=== PATIENT | female | born 1980 | race African-American/Black ===

== ENCOUNTER 2016-10-24 17:32 | Emergency (ER) | payer OTHER ==
[~2016-10-24] VITALS: Ht 160 cm; Wt 79.4 kg
[~2016-10-24 17:32] MED LIST: ONDA4TAB10 PO
[2016-10-24 17:34] VITALS: BP 132/84
[2016-10-24 18:29] LABS: BILIRUBIN,URINE NEGATIVE (NEG); GLUCOSE,URINE NEGATIVE (NEG); NITRITE,URINE NEGATIVE (NEG); PROTEIN,URINE NEGATIVE (NEG-TRACE); UROBILINOGEN,URINE 0.2 mg/dL (0.2 mg/dL)
[2016-10-24 18:40] LABS: BASO % 0 % (0-3); EOS % 2 % (0-3); HEMATOCRIT 38.9 % (36.0-47.0); HEMOGLOBIN 12.7 g/dL (12.0-15.5); LYMPH # 2.3 x10^3/uL (1.0-4.8); LYMPH % 29 % (24-48); MEAN CORPUSCULAR HEMOGLOBIN 28 pg (25-35); MEAN CORPUSCULAR HGB CONC 33 g/dL (31-37); MEAN CORPUSCULAR VOLUME 85 fL (79-100); MONO % 8 % (0-9); NEUT % 61 % (31-73); PLATELET COUNT 216 x10^3/uL (140-400); RED BLOOD COUNT 4.59 x10^6/uL (3.50-5.40); RED CELL DISTRIBUTION WIDTH 13.8 % (11.5-14.5)
[2016-10-24 18:49] LABS: BACTERIA,URINE 0 /HPF (0-FEW); RBC,URINE 0 /HPF (0-2); SQUAMOUS EPITHELIAL CELL,UR FEW /LPF; WBC,URINE 0 /HPF (0-4)
--- NOTE | 2016-10-24 18:50 | PHYS DOC ---
Past Medical History Past Medical History: No Pertinent History Past Surgical History: No Surgical History Alcohol Use: Rarely Drug Use: None Adult General Chief Complaint Chief Complaint: ABDOMINAL PAIN IN HPI HPI Patient is a 35 year old female who presents with lower abdominal pain. Patient reports for the past two weeks she has had b/l pelvic pain that she describes as a "shooting" pain with no clear mitigating factors. This pain is accompanied by pressure-like low back discomfort. Patient saw her PCP when these symptoms initially started, and had a positive test at that time (which makes her ). She is unsure when her LMP was as she has irregular menstrual cycles. She did have small amount of vaginal spotting last week for a few days, but none this week. No vaginal discharge. She is taking a vitamin; she has not taken anything for pain. No other acute complaints. Review of Systems Review of Systems Constitutional: Denies fever or chills Eyes: Denies change in visual acuity or eye pain HENT: Denies nasal congestion or sore throat Respiratory: Denies cough or shortness of breath Cardiovascular: Denies chest pain GI: Denies mid or upper abdominal pain, nausea, vomiting, bloody stools or diarrhea : B/l pelvic pain. Denies vaginal bleeding, discharge, dysuria or hematuria Musculoskeletal: Low back discomfort. Integument: Denies rash or skin lesions Neurologic: Denies headache, focal weakness or sensory changes Allergies Allergies Allergies Coded Allergies Type Severity Reaction Last Updated Verified No Known Drug Allergies 06/16/14 No Physical Exam Physical Exam Constitutional: Well developed, well nourished, no acute distress, non-toxic appearance Neck: Normal range of motion, no stridor Cardiovascular: Heart rate normal, regular rhythm, no murmur Lungs & Thorax: Bilateral breath sounds clear to auscultation Abdomen: Bowel sounds normal, soft, non-distended, no TTP Pelvic: No blood in vault, minimal white discharge present, no CMT or adnexal tenderness Skin: Warm, dry, no erythema, no rash Back: No tenderness, no skin lesion or deformity Extremities: No obvious deformity, no edema Neurologic: Alert and oriented X 3, no gross deficits noted Current Patient Data Vital Signs Vital Signs Date Time Temp Pulse Resp B/P Pulse Ox O2 Delivery O2 Flow Rate FiO2 10/24/16 17:34 98.8 98 20 132/84 98 Room Air 98.8 Lab Values Laboratory Tests Test 10/24/16 17:00 10/24/16 17:58 10/24/16 18:25 POC Urine HCG, Qualitative Hcg positive (Negative) Urine Collection Type Unknown Urine Color Yellow Urine Clarity Clear Urine pH 6.0 Urine Specific Pelham <=1.005 Urine Protein Negativemg/dL (NEG-TRACE) Urine Glucose (UA) Negativemg/dL (NEG) Urine Ketones (Stick) Negativemg/dL (NEG) Urine Blood Negative (NEG) Urine Nitrite Negative (NEG) Urine Bilirubin Negative (NEG) Urine Urobilinogen Dipstick 0.2mg/dL (0.2 mg/dL) Urine Leukocyte Esterase Negative (NEG) Urine RBC 0/HPF (0-2) Urine WBC 0/HPF (0-4) Urine Squamous Epithelial Cells Few/LPF Urine Bacteria 0/HPF (0-FEW) White Blood Count 8.0x10^3/uL (4.0-11.0) Red Blood Count 4.59x10^6/uL (3.50-5.40) Hemoglobin 12.7g/dL (12.0-15.5) Hematocrit 38.9% (36.0-47.0) Mean Corpuscular Volume 85fL (79-100) Mean Corpuscular Hemoglobin 28pg (25-35) Mean Corpuscular Hemoglobin Concent 33g/dL (31-37) Red Cell Distribution Width 13.8% (11.5-14.5) Platelet Count 216x10^3/uL (140-400) Neutrophils (%) (Auto) 61% (31-73) Lymphocytes (%) (Auto) 29% (24-48) Monocytes (%) (Auto) 8% (0-9) Eosinophils (%) (Auto) 2% (0-3) Basophils (%) (Auto) 0% (0-3) Neutrophils # (Auto) 4.9x10^3uL (1.8-7.7) Lymphocytes # (Auto) 2.3x10^3/uL (1.0-4.8) Monocytes # (Auto) 0.6x10^3/uL (0.0-1.1) Eosinophils # (Auto) 0.2x10^3/uL (0.0-0.7) Basophils # (Auto) 0.0x10^3/uL (0.0-0.2) Maternal Serum HCG Beta Subunit 80699yNO/mL (0-6) H Sodium Level 138mmol/L (136-145) Potassium Level 4.0mmol/L (3.5-5.1) Chloride Level 100mmol/L (98-107) Carbon Dioxide Level 23mmol/L (21-32) Anion Gap 15 (6-14) H Blood Urea Nitrogen 10mg/dL (7-20) Creatinine 0.9mg/dL (0.6-1.0) Estimated GFR (Cockcroft-Gault) 85.7 BUN/Creatinine Ratio 11 (6-20) Glucose Level 124mg/dL (70-99) H Calcium Level 9.4mg/dL (8.5-10.1) Total Bilirubin 0.2mg/dL (0.2-1.0) Aspartate Amino Transferase (AST) 21U/L (15-37) Alanine Aminotransferase (ALT) 34U/L (14-59) Alkaline Phosphatase 59U/L (46-116) Total Protein 7.7g/dL (6.4-8.2) Albumin 3.9g/dL (3.4-5.0) Albumin/Globulin Ratio 1.0 (1.0-1.7) Laboratory Tests 10/24/16 18:25 Laboratory Tests 10/24/16 18:25 Microbiology 10/24/16 Wet Prep - Final, Complete EKG EKG [] Radiology/Procedures Radiology/Procedures Pelvic US: IMPRESSION 1. Single live intrauterine gestation, estimated sonographic gestational age 6 weeks and 0 days. 2. There is left corpus luteum. 3. There is a moderate sized fundal fibroid. Course & Med Decision Making Course & Med Decision Making Pertinent Labs and Imaging studies reviewed. (See chart for details) Patient is 35 year old female who presents with pelvic pain in the setting of . Physical exam benign. Will check UA, labs, pelvic US to evaluate. Patient declines need for tylenol for pain. Labs unremarkable. Ultrasound results as above. Pelvic swabs indicative of bacterial vaginosis. Discussed results with patient. She is already taking vitamin; has ObGyn appt already scheduled. Will discharge with rx for metronidazole, instructions for follow up, return precautions. Dragon Disclaimer Dragon Disclaimer This electronic medical record was generated, in whole or in part, using a voice recognition dictation system. Departure Departure Impression: Primary Impression: Abdominal pain during in first trimester Additional Impression: Bacterial vaginosis Disposition: 01 HOME, SELF-CARE Condition: STABLE Referrals: MATTHEW FORBES MD (PCP) Patient Instructions: Abdominal Pain During , Bacterial Vaginosis Additional Instructions: Thank you for allowing us to provide care today in the Emergency Department. Your ultrasound showed you are about 6 weeks and 0 days based on the size of the fetus. This gives a due date of 06/19/17. The pelvic swabs were positive for bacterial vaginosis. See handout for more information on this condition. Take the provided medication as directed. Also continue to take your vitamins. keep your follow up appointment with your ObGyn. Return promptly to the Emergency Department if you develop any new or concerning symptoms. Scripts Metronidazole 500 Mg Tablet1 Tab PO BID #14 TAB Prov:IRVIN HENDERSON MD 10/24/16 Problem Qualifiers IRVIN HENDERSON MD Oct 24, 2016 18:50
[2016-10-24 18:51] LABS: CALCIUM 9.4 mg/dL (8.5-10.1); CREATININE 0.9 mg/dL (0.6-1.0); GFR 85.7
[2016-10-24 18:57] LABS: ALBUMIN 3.9 g/dL (3.4-5.0); TOTAL BILIRUBIN 0.2 mg/dL (0.2-1.0); TOTAL PROTEIN 7.7 g/dL (6.4-8.2)
--- NOTE | 2016-10-24 19:19 | RAD ---
PROCEDURE Obstetric ultrasound, less than 14 weeks. HISTORY Right lower quadrant pain x2 weeks. Pelvic pain. TECHNIQUE Real-time ultrasound imaging of the pelvis using transabdominal transvaginal windows performed. COMPARISON None. FINDINGS Uterus measures 14 x 7.3 x 5.3 cm. Uterus is retroverted. There is a hypoechoic fundal fibroid measuring 4.9 x 4.3 x 4.6 cm. There is intrauterine gestational sac. Internally a yolk sac and pole are identified. [facility]-rump length 0.4 cm, 6 weeks and 0 days. Ultrasound EDC June 19, 2017. Estimated heart rate 133 beats per minute. The right ovary measures 3.2 x 1.3 x 1.7 cm. The left ovary measures 4.4 x 3.7 x 3.4 cm. Normal blood flow in the ovaries. There is left corpus luteum measuring up to 2.7 cm. No cul-de-sac free fluid is seen. No evidence of adnexal mass. IMPRESSION 1. Single live intrauterine gestation, estimated sonographic gestational age 6 weeks and 0 days. 2. There is left corpus luteum. 3. There is a moderate sized fundal fibroid. Electronically signed by: Hayden Keith MD (Oct 24, 2016 19:18:38)
[2016-10-24] MEDS ORDERED: METR500T4 PO (19:47)
== END 2016-10-24 20:13 | disposition home or self-care (01) ==
LOC: ER 17:32
DX: O23.591 Infection of other part of genital tract in pregnancy, first trimester (principal); Z3A.08 8 weeks gestation of pregnancy
CPT/HCPCS: 76801; 76817; 80053; 81001; 81025; 84702; 85027; 99285; Q0111; 36415; 87491; 87591

== ENCOUNTER → 2017-01-27 | Outpatient (CLI) | payer OTHER ==
[~2017-01-27] MED LIST changes: +METR500T8 PO
--- NOTE | 2017-01-27 13:17 | KCIC ---
uterine abdominal ultrasound more than or equal to 14 weeks HISTORY: Supervision of normal , history of fibroid COMPARISON: October 24, 2016 FINDINGS: Multiple sonographic images of the uterus are submitted. Cervix measured 4.8 cm. There is a single intrauterine fetus in breech presentation. There is detectable cardiac activity 141 bpm. Amniotic fluid volume is within normal limits, estimated JOSLYN 16.1 cm. 2 upper and lower extremities were visualized. There is a four-chamber view of the heart. There is midline cord insertion. Technologist reports a three-vessel cord although not well demonstrated on submitted images. There is no obvious abnormality of the visualized spine. stomach and 2 kidneys were visualized. Urinary bladder is not well visualized during exam. Biometry data are as follows: Biparietal diameter 4.84 cm corresponds with 20 weeks 4 days Head circumference 18.42 cm corresponds 20 weeks 5 days Abdominal circumference 14.6 cm corresponds with 20 weeks 0 days. Femur length 3.2 cm corresponds with 20 weeks 0 days. Adjusted ultrasound age 20 weeks 2 days with estimated delivery date of 06/14/2017. LMP age 20 weeks 5 days with estimated delivery date of 06/11/2017. Estimated weight 331 g +/- 49 g. HC/AC ratio 1.26 There is a mass in the anterior fundus in the myometrium up to 6.2 x 4.6 x 7 cm as seen previously. No free fluid is demonstrated. Maternal adnexal regions are not demonstrated. IMPRESSION: 1. There is a single viable intrauterine fetus, no abnormality identified of the visualized anatomy. urinary bladder is not well visualized during exam. Three-vessel cord is reported by technologist although not well-demonstrated on submitted images. Fetus is in breech presentation. 2. There is anterior uterine mass in the fundus compatible with fibroid, up to 7 cm in greatest dimension. Electronically signed by: Kenton Orlando MD (01/27/2017 1:14 PM) [facility]
== END | disposition home or self-care (01) ==
LOC: KCIC US 07:45
PROVIDERS: ATTEND Family Medicine
DX: Z34.90 Encounter for supervision of normal pregnancy, unspecified, unspecified trimester (principal)
CPT/HCPCS: 76805

== ENCOUNTER → 2017-03-26 | Outpatient (CLI) | payer OTHER ==
[~2017-03-26] MED LIST changes: +DOCU-109 PO; +IBUP-1060 PO; +ONDA8TAB9 PO; +OXYC-323 PO
[2017-03-26 10:30] LABS: HEMATOCRIT 37.7 % (36.0-47.0); HEMOGLOBIN 12.2 g/dL (12.0-15.5)
== END | disposition home or self-care (01) ==
LOC: LAB 08:48
PROVIDERS: ATTEND Family Medicine
DX: Z34.80 Encounter for supervision of other normal pregnancy, unspecified trimester (principal)
CPT/HCPCS: 36415; 82950; 85014; 85018

== ENCOUNTER → 2017-03-30 | Outpatient (CLI) | payer OTHER ==
[~2017-03-30] MED LIST changes: -DOCU-109 PO; -IBUP-1060 PO; -ONDA8TAB9 PO; -OXYC-323 PO
== END | disposition home or self-care (01) ==
LOC: LAB 08:54
PROVIDERS: ATTEND Family Medicine
DX: Z34.83 Encounter for supervision of other normal pregnancy, third trimester (principal); Z3A.35 35 weeks gestation of pregnancy
CPT/HCPCS: 36415; 82947; 82950

== ENCOUNTER → 2017-05-25 | Outpatient (CLI) | payer OTHER ==
[~2017-05-25] MED LIST changes: +DOCU-109 PO; +IBUP-1060 PO; +ONDA8TAB9 PO; +OXYC-323 PO
--- NOTE | 2017-05-25 17:04 | KCIC ---
Obstetrical ultrasound more than or equal to 14 weeks HISTORY: Possible breech presentation COMPARISON: January 27, 2017 FINDINGS: Multiple transabdominal sonographic images of the pelvis are submitted. There is a single intrauterine fetus in breech presentation, head on the maternal right side. There is detectable cardiac activity 140 bpm. movement was noted by the technologist. Biometry data are as follows: Biparietal diameter 9.57 cm corresponds with 39 weeks 1 day Head circumference 33.7 cm corresponds with 38 weeks 4 days Abdominal circumference 34.57 cm corresponding with 38 weeks 3 days Femur length 7.54 cm corresponding with 38 weeks 4 days HC/AC ratio 0.97 Estimated weight 3537 g +/- 523 grams. Adjusted ultrasound age 38 weeks 5 days with estimated delivery date of 06/03/2017. Estimated JOSLYN 13 cm. Exam does not evaluate anatomy. IMPRESSION: 1. There is a single viable intrauterine fetus, breech presentation. Electronically signed by: Kenton Orlando MD (05/25/2017 5:01 PM) [facility]
== END | disposition home or self-care (01) ==
LOC: KCIC US 13:59
PROVIDERS: ATTEND Family Medicine
DX: O32.1XX0 Maternal care for breech presentation, not applicable or unspecified (principal)
CPT/HCPCS: 76805

== ENCOUNTER 2017-05-29 10:52 | Observation (INO) | payer OTHER ==
[~2017-05-29 10:52] MED LIST changes: -DOCU-109 PO; -IBUP-1060 PO; -ONDA8TAB9 PO; -OXYC-323 PO
[2017-05-29] MEDS ORDERED: IV RINGERS,LACTATED 1000ML 1,000 ML IV PRN (11:30)
[2017-05-29 11:50] LABS: BASO % 0 % (0-3); EOS % 1 % (0-3); HEMATOCRIT 39.9 % (36.0-47.0); HEMOGLOBIN 13.1 g/dL (12.0-15.5); LYMPH # 1.9 x10^3/uL (1.0-4.8); LYMPH % 25 % (24-48); MEAN CORPUSCULAR HEMOGLOBIN 27 pg (25-35); MEAN CORPUSCULAR HGB CONC 33 g/dL (31-37); MEAN CORPUSCULAR VOLUME 84 fL (79-100); MONO % 7 % (0-9); NEUT % 66 % (31-73); PLATELET COUNT 172 x10^3/uL (140-400); RED BLOOD COUNT 4.78 x10^6/uL (3.50-5.40); WHITE BLOOD COUNT 7.5 x10^3/uL (4.0-11.0)
[2017-05-29] MEDS ORDERED: LIDOCAINE 2% PF Vial for OR 5 ML VIAL. ONE (12:09)
--- NOTE | 2017-05-29 12:38 | PDOC2 ---
CONSULT Date of Consult Date of Consult DATE: 05/29/17 TIME: 12:32 Reason for Consult Reason for Consult: External version Referring Physician Referring Physician: Dr. Champion Identification/Chief Complaint Chief Complaint breech and needs external version Problems: Source Source: Patient History of Present Illness Reason for Visit: 36 y/o @ 38 wks presents for external version if JOSLYN normal. No complications with current . Past Medical History Cardiovascular: No pertinent hx Pulmonary: No pertinent hx GI: No pertinent hx Heme/Onc: No pertinent hx Hepatobiliary: No pertinent hx Psych: No pertinent hx Rheumatologic: No pertinent hx Infectious disease: No pertinent hx ENT: No pertinent hx Renal/: No pertinent hx Endocrine: No pertinent hx Past Surgical History Past Surgical History: No pertinent history Current Medications Current Medications Current Medications Ringer's Solution 1,000 ml @ 125 mls/hr Q8H PRN IV PER PROTOCOL Last administered on 05/29/17t 11:42; Start 05/29/17 at 11:30 Lidocaine HCl (Lidocaine Pf 2% Vial) 5 ml STK-MED ONCE .ROUTE ; Start 05/29/17 at 12:09; Stop 05/29/17 at 12:10; Status DC Active Scripts Active Metronidazole 500 Mg Tablet 1 Tab PO BID Zofran Odt (Ondansetron) 4 Mg Tab.rapdis 4 Mg PO BID PRN Allergies Allergies: Coded Allergies: No Known Drug Allergies (Unverified , 06/16/14) ROS General: No: Chills, Night Sweats, Fatigue, Malaise, Appetite, Other PSYCHOLOGICAL ROS: No: Anxiety, Behavioral Disorder, Concentration difficultie , Decreased libido, Depression, Disorientation, Hallucinations, Hostility, Irritablity, Memory difficulties, Mood Swings, Obsessive thoughts, Physical abuse, Sexual abuse, Sleep disturbances, Suicidal ideation, Other Eyes: No Blurry vision, No Decreased vision, No Double vision, No Dry eyes, No Excessive tearing, No Eye Pain, No Itchy Eyes, No Loss of vision, No Photophobia , No Scotomata, No Uses contacts, No Uses glasses, No Other HEENT: No: Heacaches, Visual Changes, Hearing change, Nasal congestion, Nasal discharge, Oral lesions, Sinus pain, Sore Throat, Epistaxis, Sneezing, Snoring, Tinnitus, Vertigo, Vocal changes, Other ALLERGY AND IMMUNOLOGY: No: Hives, Insect Bite Sensitivity, Itchy/Watery Eyes, Nasal Congestion, Post Nasal Drip, Seasonal Allergies, Other Hematological and Lymphatic: No: Bleeding Problems, Blood Clots, Blood Transfusions, Brusing, Night Sweats, Pallor, Swollen Lymph Nodes, Other ENDOCRINE: No: Breast Changes, Galactorrhea, Hair Pattern Changes, Hot Flashes , Malaise/lethargy, Mood Swings, Palpitations, Polydipsia/polyuria, Skin Changes , Temperature Intolerance, Unexpected Weight Changes, Other Respiratory: No: Cough, Hemoptysis, Orthopnea, Pleuritic Pain, Shortness of breath, SOB with excertion, Sputum Changes, Stridor, Tachypnea, Wheezing, Other Gastrointestinal: No Nausea, No Vomiting, No Abdominal Pain, No Diarrhea, No Constipation, No Melena, No Hematochezia, No Other Neurological: No Behavorial Changes, No Bowel/Bladder ControlChng, No Confusion , No Dizziness, No Gait Disturbance, No Headaches, No Impaired Coord/balance, No Memory Loss, No Numbness/Tingling, No Seizures, No Speech Problems, No Tremors, No Visual Changes, No Weakness, No Other Skin: No Dry Skin, No Eczema, No Hair Changes, No Lumps, No Mole Changes, No Mottling, No Nail Changes, No Pruritus, No Rash, No Skin Lesion Changes, No Other, No Acne Physical Exam General: Alert, Oriented X3, Cooperative HEENT: Atraumatic Lungs: Clear to auscultation Heart: Regular rate Abdomen: Normal bowel sounds, Soft, No tenderness, Other (Sono: JOSLYN 5 cm. Tal Breech.) Extremities: No edema Psych/Mental Status: Mental status NL Labs Labs Laboratory Tests Test 05/29/17 11:30 White Blood Count 7.5 x10^3/uL (4.0-11.0) Red Blood Count 4.78 x10^6/uL (3.50-5.40) Hemoglobin 13.1 g/dL (12.0-15.5) Hematocrit 39.9 % (36.0-47.0) Mean Corpuscular Volume 84 fL (79-100) Mean Corpuscular Hemoglobin 27 pg (25-35) Mean Corpuscular Hemoglobin Concent 33 g/dL (31-37) Red Cell Distribution Width 16.0 % (11.5-14.5) Platelet Count 172 x10^3/uL (140-400) Neutrophils (%) (Auto) 66 % (31-73) Lymphocytes (%) (Auto) 25 % (24-48) Monocytes (%) (Auto) 7 % (0-9) Eosinophils (%) (Auto) 1 % (0-3) Basophils (%) (Auto) 0 % (0-3) Neutrophils # (Auto) 5.0 x10^3uL (1.8-7.7) Lymphocytes # (Auto) 1.9 x10^3/uL (1.0-4.8) Monocytes # (Auto) 0.5 x10^3/uL (0.0-1.1) Eosinophils # (Auto) 0.1 x10^3/uL (0.0-0.7) Basophils # (Auto) 0.0 x10^3/uL (0.0-0.2) Laboratory Tests Test 05/29/17 11:30 White Blood Count 7.5 x10^3/uL (4.0-11.0) Red Blood Count 4.78 x10^6/uL (3.50-5.40) Hemoglobin 13.1 g/dL (12.0-15.5) Hematocrit 39.9 % (36.0-47.0) Mean Corpuscular Volume 84 fL (79-100) Mean Corpuscular Hemoglobin 27 pg (25-35) Mean Corpuscular Hemoglobin Concent 33 g/dL (31-37) Red Cell Distribution Width 16.0 % (11.5-14.5) Platelet Count 172 x10^3/uL (140-400) Neutrophils (%) (Auto) 66 % (31-73) Lymphocytes (%) (Auto) 25 % (24-48) Monocytes (%) (Auto) 7 % (0-9) Eosinophils (%) (Auto) 1 % (0-3) Basophils (%) (Auto) 0 % (0-3) Neutrophils # (Auto) 5.0 x10^3uL (1.8-7.7) Lymphocytes # (Auto) 1.9 x10^3/uL (1.0-4.8) Monocytes # (Auto) 0.5 x10^3/uL (0.0-1.1) Eosinophils # (Auto) 0.1 x10^3/uL (0.0-0.7) Basophils # (Auto) 0.0 x10^3/uL (0.0-0.2) Assessment/Plan Assessment/Plan A: 38 wks IUP Tal Breech Oligohydramnios P: Will schedule for c/s on Thursday for Oligohydramnios. Counseled patient and on plan of care. RUBI RIOJAS Jr, MD May 29, 2017 12:38
[2017-06-03] MEDS ORDERED: OXYC-323 PO (09:04)
[2017-06-03] MEDS ORDERED: ONDA8TAB9 PO (09:04)
[2017-06-03] MEDS ORDERED: IBUP-1060 PO (09:04)
[2017-06-03] MEDS ORDERED: DOCU-109 PO (09:04)
== END 2017-05-29 13:15 | disposition home or self-care (01) ==
LOC: 3 SO LND 10:52
PROVIDERS: ADMIT Obstetrics & Gynecology; ATTEND Obstetrics & Gynecology
DX: O32.1XX0 Maternal care for breech presentation, not applicable or unspecified (principal); O41.03X0 Oligohydramnios, third trimester, not applicable or unspecified; Z37.0 Single live birth; Z3A.38 38 weeks gestation of pregnancy
CPT/HCPCS: 36415; 85025; 96360; 96361; G0378; G0379; J7120; J2001

== ENCOUNTER 2017-06-01 05:06 | Inpatient (IN) | payer OTHER ==
[~2017-06-01] VITALS: Ht 160 cm; Wt 83.3 kg
[2017-06-01] MEDS ORDERED: CITRIC ACID/SODIUM CITRATE 30 ML SOLUTION. PO ONE (05:15)
[2017-06-01] MEDS ORDERED: TERBUTALINE 1 MG/ML VIAL. SQ PRN (05:15)
[2017-06-01] MEDS ORDERED: OXYTOCIN 30 UNIT/500 ML PREMIX 500 ML IV PRN ×2 (05:15→10:30)
[2017-06-01] MEDS ORDERED: IV NORMAL SALINE 1000ML BAG 1,000 ML IV SCH (05:15)
[2017-06-01] MEDS: IV RINGERS,LACTATED 1000ML 1,000 ML IV SCH ×2 (06:10→08:49)
[2017-06-01 06:17] LABS: BILIRUBIN,URINE NEGATIVE (NEG); GLUCOSE,URINE NEGATIVE (NEG); NITRITE,URINE NEGATIVE (NEG); PROTEIN,URINE NEGATIVE (NEG-TRACE); UROBILINOGEN,URINE 0.2 mg/dL (0.2 mg/dL)
[2017-06-01 06:19] LABS: BARBITURATES NEG (NEG); BENZODIAZEPINES NEG (NEG); CANNABINOIDS NEG (NEG); COCAINE NEG (NEG); METHADONE NEG (NEG); OPIATES NEG (NEG); PHENCYCLIDINE NEG (NEG)
[2017-06-01 06:33] LABS: SQUAMOUS EPITHELIAL CELL,UR MOD /LPF
[2017-06-01 06:33] LABS: HEMATOCRIT 39.3 % (36.0-47.0); HEMOGLOBIN 12.8 g/dL (12.0-15.5); RED BLOOD COUNT 4.69 x10^6/uL (3.50-5.40); RED CELL DISTRIBUTION WIDTH 15.9 % (11.5-14.5); WHITE BLOOD COUNT 7.4 x10^3/uL (4.0-11.0)
[2017-06-01 06:34] LABS: BACTERIA,URINE FEW /HPF (0-FEW); RBC,URINE OCC /HPF (0-2)
[2017-06-01 06:56] VITALS: BP 109/71
[2017-06-01] MEDS ORDERED: fentaNYL PF VIAL 100 MCG/2 ML VIAL ONE (09:12)
[2017-06-01] MEDS ORDERED: MORPHINE PF 5 MG/10 ML VIAL. ONE (09:13)
[2017-06-01] MEDS ORDERED: OXYTOCIN 10 UNIT/ML VIAL. ONE ×2 (09:14→09:42)
--- NOTE | 2017-06-01 09:15 | PDOC1 ---
OB - History Hx of Present Care: Good Care Ultrasounds: Normal mid trimester US Obstetrical Complications: Other (Oligohydramnios) Medical Complications: None Other Concerns: breech Past Family/Social History * Past Medical, Surgical, Family and Obstetric Histories reviewed from chart. Rubella: Immune RPR/VDRL: Negative GBS Status: Negative HBsAG: Negative OB - Chief Complaint & HPI Date of Admission: Date of Admission: Jun 01, 2017 at 05:06 Chief Complaint/History : 4 Para: 3 EGA: 38 Reason for admission: section Indication for induction: other (oligohydramnios and breech) Admission Nurse Assessment Rev: Yes Problems: OB - Admission Exam Physical Exam Vitals: VS - Last 72 Hours, by Label Date Time Temp Pulse Resp B/P (MAP) Pulse Ox O2 Delivery O2 Flow Rate FiO2 06/01/17 06:56 98.0 97 18 109/71 (84) Room Air 98.0 HEENT: Normal Heart: Regular Rate Lungs: Clear Abdomen: Gravid, Non tender, Soft Extremities: Edema Reflexes: Normal Cervical Dilatation: Fingertip Effacement: 25% Station: Ballotable Membranes: Intact Heart Rate: Normal Accelerations: Accelerations Present Decelerations: No decelerations Contractions on Admission: None Text A: 38 wks IUP Tal Breech Oligohydramnios Desires BTL P: Admit for primary c/s and BTL, RUBI RIOJAS Jr, MD Jun 01, 2017 09:15
[2017-06-01] MEDS ORDERED: PHENYLEPHRINE in 0.9% NACL PF 1 MG/10 ML DISP.SYRIN. IV ONE (09:27)
[2017-06-01] MEDS ORDERED: METOCLOPRAMIDE HCL 10 MG/2 ML VIAL. ONE (09:28)
[2017-06-01] MEDS ORDERED: ONDANSETRON PF 4 MG/2 ML VIAL. ONE (09:29)
[2017-06-01] MEDS ORDERED: PROCHLORPERAZINE 10 MG/2 ML VIAL. ONE (09:46)
--- NOTE | 2017-06-01 10:23 | PDOC4 ---
OB Operative Note PRE OP DIAGNOSIS: Breech (Oligohydramnios and Desires BTL) POST OP DIAGNOSIS: Other (Same) OPERATION PERFORMED: [facility] Surgeon Dr. Rod Anesthesia: Regional (Spinal) Blood Loss 500 ml Specimen placenta and OB Findings: Position (Breech), Sex (Female), (8/9), Weight (2905 Gram) Complications none Additional Remarks ptRUBI Hamlin Jr, MD Jun 01, 2017 10:23
[2017-06-01] MEDS ORDERED: IBUPROFEN 800 MG TABLET. PO PRN (10:30)
[2017-06-01] MEDS ORDERED: ZOLPIDEM 5 MG TABLET. PO PRN (10:30)
[2017-06-01] MEDS ORDERED: diphenhydrAMINE ORAL ELIXIR 12.5 MG/5 ML ML PO PRN (10:30)
[2017-06-01] MEDS ORDERED: ONDANSETRON PF 4 MG/2 ML VIAL. IV PRN (10:30)
[2017-06-01] MEDS ORDERED: 0.9 % SODIUM CHLORIDE 10 ML DISP.SYRIN. IV PRN (10:30)
[2017-06-01] MEDS ORDERED: MAG HYDROX/ALUMINUM HYD/SIMETH 30 ML ORAL.SUSP PO PRN (10:30)
[2017-06-01] MEDS ORDERED: KETOROLAC 30 MG/ML INJ. IV PRN (10:30)
--- NOTE | 2017-06-01 10:57 | OP ---
DATE OF SURGERY: 06/01/2017 PREOPERATIVE DIAGNOSES: 1. A 38 weeks intrauterine . 2. Breech presentation. 3. Oligohydramnios. 4. Desires permanent sterilization. POSTOPERATIVE DIAGNOSES: 1. A 38 weeks intrauterine . 2. Breech presentation. 3. Oligohydramnios. 4. Desires permanent sterilization. PROCEDURE: Primary low transverse section and bilateral tubal ligation. SURGEON: Rubi Rod MD ANESTHESIA: Spinal. ESTIMATED BLOOD LOSS: 500 mL. COMPLICATIONS: None. FINDINGS: Viable female , Apgars 8 and 9, weight 2905 grams. Three-vessel cord placenta delivered manually intact. SUMMARY: A 36-year-old 4, para 3 at 38-1/2 weeks intrauterine , presented for primary low transverse section due to breech presentation, oligohydramnios. The patient also desired permanent sterilization. She was counseled on risks, benefits and expectations as well as the failure rate of bilateral tubal ligation and voiced a clear understanding to proceed. DESCRIPTION OF PROCEDURE: The patient was taken to the surgery suite, placed in dorsal supine position. She was prepped with ChloraPrep and draped in a sterile fashion. After adequate anesthesia, a Pfannenstiel skin incision was made with scalpel down to and through the fascia. Fascia was extended laterally using curved Bhardwaj scissors. The superior edge of the fascia was grasped with two Lior clamps and dissected free of the abdominal rectus muscles using blunt dissection along with Bovie cautery. The same process took place inferiorly. The abdominal rectus muscles were dissected bluntly at the midline. Two hemostats were placed on the peritoneum. The peritoneum was then entered sharply with Metzenbaum scissors. This incision was extended superiorly as well as inferiorly. The Jose ring retractor was placed. A low transverse hysterotomy incision was made with a scalpel down to the amniotic sac. The hysterotomy incision was extended laterally and superiorly digitally. Amniotomy was performed with Allis clamp. With the aid of fundal pressure the infant's buttocks was delivered. Both legs were flexed and delivered. With additional fundal pressure, the was delivered down to the subscapular region, in which the right arm was flexed. The infant was rotated 180 degrees and the left arm was flexed. With additional fundal pressure, the infant's head was delivered in a smooth atraumatic manner. With bulb suction the infant was suctioned nasally and orally. The umbilical cord was clamped twice and cut and a viable female was handed to waiting nursing staff. Umbilical cord blood was then obtained. Three-vessel cord placenta was delivered manually intact. The uterus was exteriorized, cleared of clot and debris with a moist lap. The hysterotomy incision was reapproximated using 0 Vicryl in a running locked fashion. An imbricated layer of 1-0 Vicryl suture was performed for better hemostasis. The uterus palpated firm, fallopian tubes and ovaries appeared normal bilaterally. There were several small fibroids, about three small fibroids less than 2 cm size. There was a large fundal fibroid of about 5 cm in size. The posterior cul-de-sac was cleared of clot and debris with a moist lap. The right fallopian tube was grabbed with Babcocks and undermined with Bovie cautery. The proximal and distal ends of the fallopian tube were tied with plain gut suture. The mid section of fallopian tube was removed with aid of Metzenbaum scissors. Two telescoping ends were visualized and hemostatic. Same process took place for the left adnexa. The uterus was then returned to the abdomen. The hysterotomy incision was reviewed and was hemostatic. Pericolic gutters were cleared of clot and debris with a moist lap. Interceed was placed over the hysterotomy incision in an inverted T fashion. The Jose ring retractor was removed. The peritoneum was reapproximated using 1-0 Vicryl suture in running fashion. Fascia was reapproximated with 0 Vicryl suture in running fashion. Skin was reapproximated using 4-0 Vicryl suture in subcuticular manner. The patient tolerated the procedure well and was taken to recovery room in stable condition. Sponge and needle counts correct x 3. RUBI ROD MD DR: LYDIA/ghanshyam JOB#: [id number] / [id number]
[2017-06-01] MEDS: KETOROLAC 30 MG/ML INJ. IV PRN ×2 (11:14→22:15)
[2017-06-01 12:50] VITALS: BP 91/62
[2017-06-01 13:10] VITALS: BP 91/59
[2017-06-01 13:30] VITALS: BP 94/61
[2017-06-01 14:30] VITALS: BP 89/59
[2017-06-01] MEDS ORDERED: FERROUS SULFATE 325 MG TABLET. PO SCH (17:00)
[2017-06-01 23:02] VITALS: BP 99/60
[2017-06-02 00:10] LABS: RPR REFLEX Non Reactive (Non Reactive)
[2017-06-02 04:47] LABS: BASO % 0 % (0-3); EOS % 1 % (0-3); HEMOGLOBIN 10.6 g/dL (12.0-15.5); LYMPH # 1.7 x10^3/uL (1.0-4.8); LYMPH % 19 % (24-48); MEAN CORPUSCULAR HEMOGLOBIN 28 pg (25-35); MEAN CORPUSCULAR HGB CONC 33 g/dL (31-37); MEAN CORPUSCULAR VOLUME 85 fL (79-100); MONO % 7 % (0-9); NEUT % 73 % (31-73); PLATELET COUNT 148 x10^3/uL (140-400); RED BLOOD COUNT 3.79 x10^6/uL (3.50-5.40); RED CELL DISTRIBUTION WIDTH 15.9 % (11.5-14.5); WHITE BLOOD COUNT 8.9 x10^3/uL (4.0-11.0)
[2017-06-02] MEDS: oxyCODONE/APAP 5/325 1 TAB TABLET PO PRN ×3 (04:47→15:15)
[2017-06-02] MEDS: KETOROLAC 30 MG/ML INJ. IV PRN (04:47)
[2017-06-02 05:45] VITALS: BP 97/78
[2017-06-02] MEDS: DOCUSATE SODIUM 100 MG CAPSULE. PO PRN (07:59)
[2017-06-02] MEDS: SIMETHICONE 80 MG TAB.CHEW PO PRN ×2 (07:59→15:14)
--- NOTE | 2017-06-02 08:52 | PDOC ---
OB Progress Note Date of Service 06/02/17 Time of Evaluation 0850 Notes Pt. feeling well. Pain controlled. Lab Laboratory Tests Test 06/01/17 05:50 06/01/17 05:55 06/02/17 04:30 Urine Collection Type Unknown Urine Color Yellow Urine Clarity Clear Urine pH 6.0 Urine Specific Eugene 1.015 Urine Protein Negative mg/dL (NEG-TRACE) Urine Glucose (UA) Negative mg/dL (NEG) Urine Ketones (Stick) Negative mg/dL (NEG) Urine Blood Negative (NEG) Urine Nitrite Negative (NEG) Urine Bilirubin Negative (NEG) Urine Urobilinogen Dipstick 0.2 mg/dL (0.2 mg/dL) Urine Leukocyte Esterase Negative (NEG) Urine RBC Occ /HPF (0-2) Urine WBC 1-4 /HPF (0-4) Urine Squamous Epithelial Cells Mod /LPF Urine Bacteria Few /HPF (0-FEW) Urine Mucus Mod /LPF Urine Opiates Screen Neg (NEG) Urine Methadone Screen Neg (NEG) Urine Barbiturates Neg (NEG) Urine Phencyclidine Screen Neg (NEG) Urine Amphetamine/Methamphetamine Neg (NEG) Urine Benzodiazepines Screen Neg (NEG) Urine Cocaine Screen Neg (NEG) Urine Cannabinoids Screen Neg (NEG) Urine Ethyl Alcohol Neg (NEG) White Blood Count 7.4 x10^3/uL (4.0-11.0) 8.9 x10^3/uL (4.0-11.0) Red Blood Count 4.69 x10^6/uL (3.50-5.40) 3.79 x10^6/uL (3.50-5.40) Hemoglobin 12.8 g/dL (12.0-15.5) 10.6 g/dL (12.0-15.5) Hematocrit 39.3 % (36.0-47.0) 32.0 % (36.0-47.0) Mean Corpuscular Volume 84 fL (79-100) 85 fL (79-100) Mean Corpuscular Hemoglobin 27 pg (25-35) 28 pg (25-35) Mean Corpuscular Hemoglobin Concent 33 g/dL (31-37) 33 g/dL (31-37) Red Cell Distribution Width 15.9 % (11.5-14.5) 15.9 % (11.5-14.5) Platelet Count 161 x10^3/uL (140-400) 148 x10^3/uL (140-400) Glucose Level 79 mg/dL (70-99) RPR Titer Additional Testing Non reactive (Non Reactive) Neutrophils (%) (Auto) 73 % (31-73) Lymphocytes (%) (Auto) 19 % (24-48) Monocytes (%) (Auto) 7 % (0-9) Eosinophils (%) (Auto) 1 % (0-3) Basophils (%) (Auto) 0 % (0-3) Neutrophils # (Auto) 6.5 x10^3uL (1.8-7.7) Lymphocytes # (Auto) 1.7 x10^3/uL (1.0-4.8) Monocytes # (Auto) 0.7 x10^3/uL (0.0-1.1) Eosinophils # (Auto) 0.1 x10^3/uL (0.0-0.7) Basophils # (Auto) 0.0 x10^3/uL (0.0-0.2) Laboratory Tests Test 06/02/17 04:30 White Blood Count 8.9 x10^3/uL (4.0-11.0) Red Blood Count 3.79 x10^6/uL (3.50-5.40) Hemoglobin 10.6 g/dL (12.0-15.5) Hematocrit 32.0 % (36.0-47.0) Mean Corpuscular Volume 85 fL (79-100) Mean Corpuscular Hemoglobin 28 pg (25-35) Mean Corpuscular Hemoglobin Concent 33 g/dL (31-37) Red Cell Distribution Width 15.9 % (11.5-14.5) Platelet Count 148 x10^3/uL (140-400) Neutrophils (%) (Auto) 73 % (31-73) Lymphocytes (%) (Auto) 19 % (24-48) Monocytes (%) (Auto) 7 % (0-9) Eosinophils (%) (Auto) 1 % (0-3) Basophils (%) (Auto) 0 % (0-3) Neutrophils # (Auto) 6.5 x10^3uL (1.8-7.7) Lymphocytes # (Auto) 1.7 x10^3/uL (1.0-4.8) Monocytes # (Auto) 0.7 x10^3/uL (0.0-1.1) Eosinophils # (Auto) 0.1 x10^3/uL (0.0-0.7) Basophils # (Auto) 0.0 x10^3/uL (0.0-0.2) Medications Current Medications Sodium Chloride 1,000 ml @ 125 mls/hr Q8H IV Last administered on 06/01/17 23:29; Start 06/01/17 at 05:15 Cefazolin Sodium/ Dextrose 50 ml @ 100 mls/hr 1X ONCE IV Last administered on 06/01/17 08:49; Start 06/01/17 at 05:15; Stop 06/01/17 at 05:44; Status DC Citric Acid/ Sodium Citrate (Bicitra) 30 ml 1X ONCE PO ; Start 06/01/17 at 05: 15; Stop 06/01/17 at 05:19; Status DC Terbutaline Sulfate (Brethine) 0.25 mg 1X PRN PRN SQ SEE COMMENTS; Start 06/01 at 05:15; Stop 06/02/17 at 05:14; Status DC Oxytocin/Sodium Chloride 500 ml @ 0 mls/hr CONT PRN PRN IV Post delivery bleeding; Start 06/01/17 at 05:15 Ibuprofen (Motrin) 800 mg PRN Q6HRS PRN PO PAIN; Start 06/01/17 at 05:15 Ringer's Solution 1,000 ml @ 150 mls/hr Q6H40M IV Last administered on 08:49; Start 06/01/17 at 06:15 Ketorolac Tromethamine (Toradol) 30 mg PRN Q6HRS PRN IV PAIN Last administered on 06/02/17 04:47; Start 06/01/17 at 09:00; Stop 06/06/17 at 08:59 Fentanyl Citrate (Fentanyl 2ml Vial) 100 mcg STK-MED ONCE .ROUTE ; Start at 09:12; Stop 06/01/17 at 09:13; Status DC Morphine Sulfate (Morphine Preservative Free) 5 mg STK-MED ONCE .ROUTE ; Start 06/01/17 at 09:13; Stop 06/01/17 at 09:14; Status DC Oxytocin (Pitocin) 10 unit STK-MED ONCE .ROUTE ; Start 06/01/17 at 09:14; Stop 06/01/17 at 09:15; Status DC Ephedrine Sulfate (Akovaz) 50 mg STK-MED ONCE .ROUTE ; Start 06/01/17 at 09:24 ; Stop 06/01/17 at 09:25; Status DC Ephedrine Sulfate (Akovaz) 50 mg STK-MED ONCE .ROUTE ; Start 06/01/17 at 09:25 ; Stop 06/01/17 at 09:26; Status DC Phenylephrine HCl 1 mg STK-MED ONCE IV ; Start 06/01/17 at 09:27; Stop at 09:28; Status DC Metoclopramide HCl (Reglan Vial) 10 mg STK-MED ONCE .ROUTE ; Start 06/01/17 at 09:28; Stop 06/01/17 at 09:29; Status DC Ondansetron HCl (Zofran) 4 mg STK-MED ONCE .ROUTE ; Start 06/01/17 at 09:29; Stop 06/01/17 at 09:30; Status DC Oxytocin (Pitocin) 10 unit STK-MED ONCE .ROUTE ; Start 06/01/17 at 09:42; Stop 06/01/17 at 09:43; Status DC Prochlorperazine Edisylate (Compazine) 10 mg STK-MED ONCE .ROUTE ; Start at 09:46; Stop 06/01/17 at 09:47; Status DC Sodium Chloride (Normal Saline Flush) 3 ml QSHIFT PRN IV AFTER MEDS AND BLOOD DRAWS; Start 06/01/17 at 10:30 Oxytocin/Sodium Chloride 500 ml @ 125 mls/hr CONT PRN IV EXCESSIVE POST- BLEEDING; Start 06/01/17 at 10:30; Stop 06/01/17 at 18:29; Status DC Ibuprofen (Motrin) 800 mg PRN Q8HRS PRN PO INFLAMMATION; Start 06/01/17 at 10: 30 Ondansetron HCl (Zofran) 4 mg PRN Q6HRS PRN IV NAUSEA/VOMITING Last administered on 06/01/17t 22:15; Start 06/01/17 at 10:30 Docusate Sodium (Colace) 100 mg PRN BID PRN PO CONSTIPATION Last administered on 06/02/17 07:59; Start 06/01/17 at 10:30 Al Hydroxide/Mg Hydroxide (Mylanta Plus Xs) 30 ml PRN Q4HRS PRN PO HEARTBURN / GAS; Start 06/01/17 at 10:30 Simethicone (Gas-X) 80 mg PRN AFTMEALHC PRN PO GAS / BLOATING Last administered on 06/02/17 07:59; Start 06/01/17 at 10:30 Diphenhydramine HCl (Benadryl Oral Elixir) 12.5 mg PRN Q6HRS PRN PO ITCHING; Start 06/01/17 at 10:30 Ferrous Sulfate (Feosol) 325 mg BIDWMEALS PO ; Start 06/01/17 at 17:00; Stop 06/02/17 at 05:23; Status DC Zolpidem Tartrate (Ambien) 5 mg PRN QHS PRN PO INSOMNIA, MAY REPEAT X1; Start 06/01/17 at 10:30 Oxycodone/ Acetaminophen (Percocet 5/325) 2 tab PRN Q4HRS PRN PO MODERATE PAIN , SEVERE PAIN Last administered on 06/02/17 04:47; Start 06/01/17 at 10:30 Ketorolac Tromethamine (Toradol) 30 mg PRN Q6HRS PRN IV PAIN; Start 06/01/17 at 10:30; Stop 06/06/17 at 10:29 Active Scripts Active Metronidazole 500 Mg Tablet 1 Tab PO BID Zofran Odt (Ondansetron) 4 Mg Tab.rapdis 4 Mg PO BID PRN Exam Abd: soft, mild tenderness, fundus firm Incision site: clean, dry and intact Assessment POD#1 s/p c/s and BTL Plan of Care: Continue current Tx, Mgmt RUBI RIOJAS Jr, MD Jun 02, 2017 08:52
[2017-06-02] MEDS ORDERED: BISACODYL 10 MG SUPP.RECT. PR PRN (15:15)
[2017-06-02] MEDS: IBUPROFEN 800 MG TABLET. PO PRN ×2 (15:15→23:02)
[2017-06-02 16:15] VITALS: BP 108/75
[2017-06-02 22:05] VITALS: BP 114/76
[2017-06-03] MEDS: oxyCODONE/APAP 5/325 1 TAB TABLET PO PRN ×2 (03:51→07:22)
[2017-06-03 05:00] VITALS: BP 108/74
[2017-06-03] MEDS: IBUPROFEN 800 MG TABLET. PO PRN (07:21)
[2017-06-03] MEDS: DOCUSATE SODIUM 100 MG CAPSULE. PO PRN (07:22)
--- NOTE | 2017-06-03 09:02 | PDOC ---
OB Progress Note Date of Service 06/03/17 Time of Evaluation 0900 Notes Pt. feeling well. No complaints. Lab Laboratory Tests Test 06/02/17 04:30 White Blood Count 8.9 x10^3/uL (4.0-11.0) Red Blood Count 3.79 x10^6/uL (3.50-5.40) Hemoglobin 10.6 g/dL (12.0-15.5) Hematocrit 32.0 % (36.0-47.0) Mean Corpuscular Volume 85 fL (79-100) Mean Corpuscular Hemoglobin 28 pg (25-35) Mean Corpuscular Hemoglobin Concent 33 g/dL (31-37) Red Cell Distribution Width 15.9 % (11.5-14.5) Platelet Count 148 x10^3/uL (140-400) Neutrophils (%) (Auto) 73 % (31-73) Lymphocytes (%) (Auto) 19 % (24-48) Monocytes (%) (Auto) 7 % (0-9) Eosinophils (%) (Auto) 1 % (0-3) Basophils (%) (Auto) 0 % (0-3) Neutrophils # (Auto) 6.5 x10^3uL (1.8-7.7) Lymphocytes # (Auto) 1.7 x10^3/uL (1.0-4.8) Monocytes # (Auto) 0.7 x10^3/uL (0.0-1.1) Eosinophils # (Auto) 0.1 x10^3/uL (0.0-0.7) Basophils # (Auto) 0.0 x10^3/uL (0.0-0.2) Medications Current Medications Sodium Chloride 1,000 ml @ 125 mls/hr Q8H IV Last administered on 06/01/17t 23:29; Start 06/01/17 at 05:15 Cefazolin Sodium/ Dextrose 50 ml @ 100 mls/hr 1X ONCE IV Last administered on 06/01/17 08:49; Start 06/01/17 at 05:15; Stop 06/01/17 at 05:44; Status DC Citric Acid/ Sodium Citrate (Bicitra) 30 ml 1X ONCE PO ; Start 06/01/17 at 05: 15; Stop 06/01/17 at 05:19; Status DC Terbutaline Sulfate (Brethine) 0.25 mg 1X PRN PRN SQ SEE COMMENTS; Start 06/01 at 05:15; Stop 06/02/17 at 05:14; Status DC Oxytocin/Sodium Chloride 500 ml @ 0 mls/hr CONT PRN PRN IV Post delivery bleeding; Start 06/01/17 at 05:15 Ibuprofen (Motrin) 800 mg PRN Q6HRS PRN PO PAIN Last administered on 07:21; Start 06/01/17 at 05:15 Ringer's Solution 1,000 ml @ 150 mls/hr Q6H40M IV Last administered on 08:49; Start 06/01/17 at 06:15 Ketorolac Tromethamine (Toradol) 30 mg PRN Q6HRS PRN IV PAIN Last administered on 06/02/17 04:47; Start 06/01/17 at 09:00; Stop 06/06/17 at 08:59 Fentanyl Citrate (Fentanyl 2ml Vial) 100 mcg STK-MED ONCE .ROUTE ; Start at 09:12; Stop 06/01/17 at 09:13; Status DC Morphine Sulfate (Morphine Preservative Free) 5 mg STK-MED ONCE .ROUTE ; Start 06/01/17 at 09:13; Stop 06/01/17 at 09:14; Status DC Oxytocin (Pitocin) 10 unit STK-MED ONCE .ROUTE ; Start 06/01/17 at 09:14; Stop 06/01/17 at 09:15; Status DC Ephedrine Sulfate (Akovaz) 50 mg STK-MED ONCE .ROUTE ; Start 06/01/17 at 09:24 ; Stop 06/01/17 at 09:25; Status DC Ephedrine Sulfate (Akovaz) 50 mg STK-MED ONCE .ROUTE ; Start 06/01/17 at 09:25 ; Stop 06/01/17 at 09:26; Status DC Phenylephrine HCl 1 mg STK-MED ONCE IV ; Start 06/01/17 at 09:27; Stop at 09:28; Status DC Metoclopramide HCl (Reglan Vial) 10 mg STK-MED ONCE .ROUTE ; Start 06/01/17 at 09:28; Stop 06/01/17 at 09:29; Status DC Ondansetron HCl (Zofran) 4 mg STK-MED ONCE .ROUTE ; Start 06/01/17 at 09:29; Stop 06/01/17 at 09:30; Status DC Oxytocin (Pitocin) 10 unit STK-MED ONCE .ROUTE ; Start 06/01/17 at 09:42; Stop 06/01/17 at 09:43; Status DC Prochlorperazine Edisylate (Compazine) 10 mg STK-MED ONCE .ROUTE ; Start at 09:46; Stop 06/01/17 at 09:47; Status DC Sodium Chloride (Normal Saline Flush) 3 ml QSHIFT PRN IV AFTER MEDS AND BLOOD DRAWS; Start 06/01/17 at 10:30 Oxytocin/Sodium Chloride 500 ml @ 125 mls/hr CONT PRN IV EXCESSIVE POST- BLEEDING; Start 06/01/17 at 10:30; Stop 06/01/17 at 18:29; Status DC Ibuprofen (Motrin) 800 mg PRN Q8HRS PRN PO INFLAMMATION; Start 06/01/17 at 10: 30 Ondansetron HCl (Zofran) 4 mg PRN Q6HRS PRN IV NAUSEA/VOMITING Last administered on 06/01/17 22:15; Start 06/01/17 at 10:30 Docusate Sodium (Colace) 100 mg PRN BID PRN PO CONSTIPATION Last administered on 06/03/17 07:22; Start 06/01/17 at 10:30 Al Hydroxide/Mg Hydroxide (Mylanta Plus Xs) 30 ml PRN Q4HRS PRN PO HEARTBURN / GAS; Start 06/01/17 at 10:30 Simethicone (Gas-X) 80 mg PRN AFTMEALHC PRN PO GAS / BLOATING Last administered on 06/02/17 15:14; Start 06/01/17 at 10:30 Diphenhydramine HCl (Benadryl Oral Elixir) 12.5 mg PRN Q6HRS PRN PO ITCHING; Start 06/01/17 at 10:30 Ferrous Sulfate (Feosol) 325 mg BIDWMEALS PO ; Start 06/01/17 at 17:00; Stop 06/02/17 at 05:23; Status DC Zolpidem Tartrate (Ambien) 5 mg PRN QHS PRN PO INSOMNIA, MAY REPEAT X1; Start 06/01/17 at 10:30 Oxycodone/ Acetaminophen (Percocet 5/325) 2 tab PRN Q4HRS PRN PO MODERATE PAIN , SEVERE PAIN Last administered on 06/03/17t 07:22; Start 06/01/17 at 10:30 Ketorolac Tromethamine (Toradol) 30 mg PRN Q6HRS PRN IV PAIN; Start 06/01/17 at 10:30; Stop 06/06/17 at 10:29 Bisacodyl (Dulcolax Supp) 10 mg PRN DAILY PRN [place] CONSTIPATION Last administered on 06/02/17 15:15; Start 06/02/17 at 15:15 Active Scripts Active Metronidazole 500 Mg Tablet 1 Tab PO BID Zofran Odt (Ondansetron) 4 Mg Tab.rapdis 4 Mg PO BID PRN Exam Abd: soft, non tender, fundus firm Incision site: clean, dry and intact Assessment POD#2 s/p c/s Plan of Care: See new orders RUBI RIOJAS Jr, MD Jun 03, 2017 09:02
--- NOTE | 2017-06-03 09:03 | DISCH ---
DISCHARGE INSTRUCTIONS Condition on Discharge Condition on Discharge: Stable Activity After Discharge Activity Instructions for Disc: Activity as tolerated Lifting Instructions after Dis: No heavy lifting Driving Instructions after Dis: No driving for 2 weeks Diet after Discharge Diet after Discharge: Regular Contacting the DRMyrna after DC Call your doctor for: Concerns you may have Follow-Up Follow up with: Dr. Rod in 2 weeks. RUBI ROD Jr, MD Jun 03, 2017 09:03
[2017-06-03] MEDS ORDERED: ONDA8TAB9 PO (09:04)
[2017-06-03] MEDS ORDERED: OXYC-323 PO (09:04)
[2017-06-03] MEDS ORDERED: IBUP-1060 PO (09:04)
[2017-06-03] MEDS ORDERED: DOCU-109 PO (09:04)
[2017-06-03] MEDS ORDERED: ONDANSETRON ODT 4 MG TAB.RAPDIS. PO PRN (09:45)
[2017-06-03 10:45] VITALS: BP 122/79
--- NOTE | 2017-06-03 13:28 | PATHOLOGY ---
PATHOLOGY REPORT * * * * * * * * FINAL DIAGNOSIS: A. Right tubal ligation: - Segment of fallopian tube confirmed, showing focal stromal decidualization. B. Left tubal ligation: - Segment of fallopian tube confirmed. (JPM:mgtaj; 06/03/2017) REPORT ELECTRONICALLY SIGNED BY: Mikey Hill M.D. DATE/TIME: 06/03/2017 13:27 * * * * * * * * GROSS PATHOLOGY: A. Received in formalin labeled "Karen Sotelo, right tube," is a non-fimbriated segment of fallopian tube measuring 1.9 cm in length and 0.8 cm in diameter. The serosal surface is dark purple, smooth and glistening. The tissue is submitted representatively in cassette A1. B. Received in formalin labeled "Karen Sotelo, left tube," is a non-fimbriated segment of fallopian tube measuring 1.5 cm in length and 0.5 cm in diameter. The serosal surface is dark purple, smooth and glistening. The tissue is submitted representatively in cassette B1. (TSD; 06/02/2017) INITIAL CPT CODE(S): A; 21852 B; 44970 Professional services performed by [facility] [address] Technical services performed by [facility] at [address] [place] [address] [address] [address]. SPECIMEN(S) RECEIVED: A.Right fallopian tube B.Left fallopian tube CLINICAL HISTORY: Primary for breech presentation with bilateral tubal ligation PATIENT: KAREN SOTELO /AGE: 511/18/1980 (Age: 36) PATIENT #: [id number] ALT CASE #: SPECIMEN COLLECTION DATE: 06/01/2017 SPECIMEN RECEIVED DATE: 06/02/2017 [facility] - [address] [place] [address] - PHONE: [phone] * * * END OF REPORT * * *
== END 2017-06-03 11:40 | disposition home or self-care (01) | DRG 766 ==
LOC: 3 SO LND 05:06 → 3 NORTH 12:03
PROVIDERS: ADMIT Family Medicine; ATTEND Family Medicine
PROC: 10D00Z1 Extraction of Products of Conception, Low, Open Approach (ICD-10-PCS; principal; 2017-06-01)
PROC: 0UB70ZZ Excision of Bilateral Fallopian Tubes, Open Approach (ICD-10-PCS; 2017-06-01)
DX: O41.03X0 Oligohydramnios, third trimester, not applicable or unspecified (principal); D25.9 Leiomyoma of uterus, unspecified; O32.1XX0 Maternal care for breech presentation, not applicable or unspecified; O34.13 Maternal care for benign tumor of corpus uteri, third trimester; Z37.0 Single live birth; Z3A.38 38 weeks gestation of pregnancy; Z30.2 Encounter for sterilization
CPT/HCPCS: 36415; 80307; 81001; 82947; 85025; 85027; 86593; 86850; 86900; 86901; J0690; J1885; J2270; J2370; J2405; J2590; J2765; J3010; J7030; J7120; Q0162; G0479

== ENCOUNTER → 2018-04-01 | Outpatient (CLI) | payer OTHER ==
[~2018-04-01] MED LIST changes: +DOCU-109 PO; +IBUP-1060 PO; +ONDA8TAB9 PO; +OXYC-323 PO
--- NOTE | 2018-04-01 08:17 | RAD ---
Right upper quadrant abdominal ultrasound, 04/01/2018: HISTORY: Right upper quadrant pain The gallbladder is not clearly defined. There are prominent echoes in the gallbladder fossa with posterior acoustic shadowing. These probably represent gallstones with associated shadowing obscuring the posterior gallbladder wall. No bile duct dilatation is seen. There is no evidence of a hepatic mass. The visualized portions of the pancreatic body are unremarkable. Other portions of the pancreas were obscured by overlying bowel. Limited views of the right kidney show no abnormality. IMPRESSION: Cholelithiasis Electronically signed by: Ryan Romero MD (04/01/2018 8:14 AM) [facility]
== END | disposition home or self-care (01) ==
LOC: US 07:08
PROVIDERS: ATTEND Family Medicine
DX: K80.80 Other cholelithiasis without obstruction (principal)
CPT/HCPCS: 76705

== ENCOUNTER → 2018-04-26 | Outpatient (CLI) | payer OTHER ==
[~2018-04-26] MED LIST changes: +BISM262O20 PO; +FLUT9.9S NS
[2018-04-26 09:53] LABS: BASO # 0.1 x10^3/uL (0.0-0.2); BASO % 1 % (0-3); EOS # 0.1 x10^3/uL (0.0-0.7); EOS % 2 % (0-3); HEMATOCRIT 39.2 % (36.0-47.0); HEMOGLOBIN 13.3 g/dL (12.0-15.5); LYMPH # 2.8 x10^3/uL (1.0-4.8); LYMPH % 34 % (24-48); MEAN CORPUSCULAR HEMOGLOBIN 29 pg (25-35); MEAN CORPUSCULAR HGB CONC 34 g/dL (31-37); MEAN CORPUSCULAR VOLUME 84 fL (79-100); MONO # 0.6 x10^3/uL (0.0-1.1); MONO % 7 % (0-9); NEUT # 4.6 x10^3uL (1.8-7.7); NEUT % 56 % (31-73); PLATELET COUNT 240 x10^3/uL (140-400); RED BLOOD COUNT 4.68 x10^6/uL (3.50-5.40); RED CELL DISTRIBUTION WIDTH 14.5 % (11.5-14.5); WHITE BLOOD COUNT 8.2 x10^3/uL (4.0-11.0)
[2018-04-26 10:14] LABS: CALCIUM 9.1 mg/dL (8.5-10.1); GFR 75.1; POTASSIUM 3.3 mmol/L (3.5-5.1); TOTAL BILIRUBIN 0.3 mg/dL (0.2-1.0)
== END | disposition home or self-care (01) ==
LOC: LAB 09:26
PROVIDERS: ATTEND Surgery
DX: Z01.818 Encounter for other preprocedural examination (principal)
CPT/HCPCS: 36415; 80048; 82040; 82247; 85025

== ENCOUNTER 2018-05-03 08:28 | Day surgery (SDC) | payer OTHER ==
[~2018-05-03] VITALS: Ht 158.8 cm; Wt 77.6 kg
[~2018-05-03 08:28] MED LIST changes: +BUPIVAC MPF-EPI 0.5%-1:200000 30 ML VIAL. ONE; +DEXAMETHASONE SOD PHOS 20 MG/5 ML VIAL. ONE; +GLUCAGON,HUMAN RECOMBINANT 1 MG/ML VIAL. ONE; +HYDROmorphone 2 MG/ML VIAL IV PRN; +IOHEXOL 300 MG/ML 100ML VIAL. ONE; +IV RINGERS,LACTATED 1000ML 1,000 ML IV SCH; +LIDOCAINE 1% PF 2 ML VIAL. ID PRN; +LIDOCAINE 2% PF Vial for OR 5 ML VIAL. ONE; +MIDAZOLAM HCL/PF 2 MG/2 ML VIAL. ONE; +MORPHINE SULFATE 2 MG/ML VIAL. IV PRN; +ONDANSETRON PF 4 MG/2 ML VIAL. IV PRN; +ONDANSETRON PF 4 MG/2 ML VIAL. ONE; +PROCHLORPERAZINE 10 MG/2 ML VIAL. IV PRN; +PROPOFOL 20 ML IV ONE; +ROCURONIUM 50 MG/5 ML VIAL. ONE; +SURGICEL HEMOSTAT 4X8 EACH. ONE; +fentaNYL PF VIAL 100 MCG/2 ML VIAL IV PRN; +fentaNYL PF VIAL 100 MCG/2 ML VIAL ONE
[2018-05-03] MEDS ORDERED: SCOPOLAMINE 1.5MG PATCH. TD ONE ×2 (09:16→09:30)
[2018-05-03 09:41] LABS: U PREG PATIENT NEGATIVE (NEG)
[2018-05-03] MEDS ORDERED: FAMOTIDINE 20 MG/2 ML VIAL ONE (09:41)
[2018-05-03] MEDS ORDERED: METOCLOPRAMIDE HCL 10 MG/2 ML VIAL. ONE (09:41)
[2018-05-03] MEDS ORDERED: diphenhydrAMINE 50 MG/ML VIAL ONE (09:43)
[2018-05-03] MEDS ORDERED: ESMOLOL 100 MG/10 ML VIAL. IV ONE (09:44)
[2018-05-03] MEDS ORDERED: KETOROLAC 30 MG/ML INJ FOR OR. INJ ONE (09:45)
[2018-05-03] MEDS ORDERED: fentaNYL PF VIAL 100 MCG/2 ML VIAL ONE ×2 (09:52→11:44)
[2018-05-03] MEDS ORDERED: GLYCOPYRROLATE 1 MG/5 ML VIAL. ONE (09:59)
[2018-05-03] MEDS ORDERED: NEOSTIGMINE METHYLSULFATE 5 MG/5 ML SYRINGE. ONE (09:59)
--- NOTE | 2018-05-03 10:57 | RAD ---
OPERATIVE CHOLANGIOGRAM: History: Left calf cholecystectomy Procedure: A total of 4 fluoroscopic images were obtained of the right upper quadrant. Cystic duct was cannulated by the surgeon. Total fluoroscopic time was 25 seconds. Findings: There is opacification of the intrahepatic and extrahepatic biliary ducts. No filling defect to suggest choledocholithiasis is identified. Contrast material is able to transit to the duodenal sweep. Small amount of contrast material is also seen in the pancreatic duct. Impression: No evidence of choledocholithiasis. Electronically signed by: Cliff Valerio MD (05/03/2018 10:54 AM) [place] [id number]
--- NOTE | 2018-05-03 11:39 | OP ---
DATE OF SURGERY: 05/03/2018 PREOPERATIVE DIAGNOSIS: Symptomatic cholelithiasis. POSTOPERATIVE DIAGNOSES: Symptomatic cholelithiasis with cholecystitis, omental adhesions to the abdominal wall, Jhed-[id number] adhesions. PROCEDURE: 1. Laparoscopic cholecystectomy with cholangiograms. 2. Lysis of adhesions. SURGEON: Marcellus Jorge MD [employer] COUNSELOR: ELENA Esquivel. ANESTHESIA: General endotracheal. BLOOD LOSS: 25. INTRAVENOUS FLUIDS: 1 liter. INDICATIONS: The patient is a 37-year-old with epigastric and right upper quadrant postprandial pain. Ultrasound shows stones. She is brought for cholecystectomy. OPERATIVE FINDINGS: The liver was smooth and sharp. The gallbladder was moderately edematous. Cholangiograms were normal. Visual inspection of the remainder of the abdomen showed a single column of omental adhesions in the midline just below the umbilicus as well as some adhesions between the liver and abdominal wall. DESCRIPTION OF PROCEDURE: The patient brought to the operating suite, given a general endotracheal anesthetic and the abdomen prepped and draped in usual sterile fashion. An infraumbilical incision was infiltrated with local anesthetic, incised and a 5 mm Visiport used to safely gain access into the abdominal cavity. Pneumoperitoneum established. Camera inserted. Inspection carried out with results as noted above. With the table in reverse Trendelenburg rolled to the left, the epigastric, midclavicular, and lateral ports were placed under direct vision. Liver adhesions were taken down with careful cautery dissection. This allowed retraction of the gallbladder superolaterally and omental adhesions in the hepatic flexure of the colon were reflected off the gallbladder with careful blunt and cautery dissection, taking care to avoid injury to the adjacent bowel. This allowed visualization of the cystic duct and cystic artery. The duct was clipped on the gallbladder side after controlling a small vessel intimately adherent to it. Cholangiograms were made. These were normal. In light of this, the catheter was removed. The cystic duct was clipped x 3 and divided, taking care to avoid injury or compromise of the common duct. The cystic artery was doubly clipped and divided and gallbladder freed from the bed with cautery dissection and placed in an EndoCatch bag. Hemostasis obtained in the fossa with cautery. No evidence of bile leak seen. A 19-Wolof round Addy drain was brought through the epigastric port out the lateral ports, sewn to the skin with a silk stitch and left in the subhepatic space for postoperative drainage. Table returned to level. Gallbladder delivered through the epigastric incision. Epigastric incision closed with interrupted 0 Vicryl suture. Intra-abdominal pressure decreased to 6 cm of water. No bleeding from the epigastric closure or from the midclavicular port site after its removal or from the drain site. Abdomen decompressed, camera slowly removed, no bleeding seen. Skin incisions closed with subcuticular 4-0 Monocryl. Steri-Strips and sterile dressings applied. The patient awakened from her anesthetic and taken to the recovery room in satisfactory condition. MARCELLUS JORGE MD DR: JULIAN/ghanshyam JOB#: [id number] / [id number]
[2018-05-03] MEDS: fentaNYL PF VIAL 100 MCG/2 ML VIAL IV PRN ×2 (11:47→12:24)
--- NOTE | 2018-05-03 11:47 | DISCH ---
DISCHARGE INSTRUCTIONS Condition on Discharge Condition on Discharge: Stable Activity After Discharge Activity Instructions for Disc: Other, see below Lifting Instructions after Dis: No heavy lifting, No pulling or pushing, Do not lift >10 pounds Driving Instructions after Dis: Do not drive (3-4 days) Weight Bearing Status after Di: No restrictions Diet after Discharge Diet after Discharge: Regular Wound Incision Care Wound/Incision Care: Ice to area for comfort, May get incision wet, Other, see below Other wound/incision instructi: may shower Thursday Contacting the DRMyrna after DC Call your doctor for: Concerns you may have Follow-Up Follow up with: Eulalio next week ELVA JORGE MD May 03, 2018 11:47
[2018-05-03] MEDS ORDERED: OXYC-323 PO (11:53)
[2018-05-03] MEDS ORDERED: oxyCODONE/APAP 5/325 1 TAB TABLET PO ONE (12:00)
[2018-05-03 13:45] VITALS: BP 126/72
--- NOTE | 2018-05-04 14:08 | PATHOLOGY ---
[facility] Accession Number: [id number] . 01 Material submitted: . GALLBLADDER . 01 Clinical history: . Calculus of gallbladder without cholecystitis without obstruction . 02 Diagnosis: Gallbladder, laparoscopic cholecystectomy: - Cholelithiasis. - Chronic cholecystitis. (JPM:raquel; 05/04/2018) QMS/05/04/2018 . 02 Comment: There is no evidence of malignancy. . 02 Electronically signed: . Mikey Hill MD, Pathologist NPI- [id number] . 01 Gross description: . The specimen is received in formalin, labeled "Karen Pines, gallbladder". Received is a previously opened gallbladder measuring 10.3 x 3.1 x 2.8 cm in greatest dimensions displaying pink-red serosal surfaces. Opening the gallbladder reveals a velvety, pink-red mucosa with a gallbladder wall thickness of 0.1 cm. Calculi are present displaying a bright yellow and multifaceted appearance, and no masses or lesions are noted grossly. Skiver Blockers sections, to include the proximal margin, are submitted in cassette A1. (CAA; 05/03/2018) QAC/QAC . 02 Pathologist provided ICD-10: K80.10 . 02 CPT . 911145 Specimen Comment: A courtesy copy of this report has been sent to Specimen Comment: [phone], . Specimen Comment: Report sent to / DR FORBES Specimen Comment: A duplicate report has been generated due to demographic updates. Performed at: 01 [facility] [address], [place], [place] [id number] MD Donato Wilson MD Phone: [phone] Performed at: 02 [facility] [address] [place], [place] [id number] MD Mikey Hill MD Phone: [phone]
== END 2018-05-03 13:45 | disposition home or self-care (01) ==
LOC: SURG 08:28
PROVIDERS: ATTEND Surgery
DX: K80.10 Calculus of gallbladder with chronic cholecystitis without obstruction (principal); K66.0 Peritoneal adhesions (postprocedural) (postinfection); Z79.899 Other long term (current) drug therapy; Z86.32 Personal history of gestational diabetes; Z98.890 Other specified postprocedural states; Z72.89 Other problems related to lifestyle
CPT/HCPCS: 47563; 74300; 81025; 88304; A7015; J0690; J1100; J1200; J1885; J2001; J2250; J2405; J2704; J2710; J2765; J3010; J3490; J7030; J7120; Q9967; J1610

== ENCOUNTER → 2018-10-27 | Outpatient (CLI) | payer OTHER ==
[~2018-10-27] MED LIST changes: -BUPIVAC MPF-EPI 0.5%-1:200000 30 ML VIAL. ONE; -DEXAMETHASONE SOD PHOS 20 MG/5 ML VIAL. ONE; -GLUCAGON,HUMAN RECOMBINANT 1 MG/ML VIAL. ONE; -HYDROmorphone 2 MG/ML VIAL IV PRN; -IOHEXOL 300 MG/ML 100ML VIAL. ONE; -IV RINGERS,LACTATED 1000ML 1,000 ML IV SCH; -LIDOCAINE 1% PF 2 ML VIAL. ID PRN; -LIDOCAINE 2% PF Vial for OR 5 ML VIAL. ONE; +METR-34 PO; -METR500T8 PO; -MIDAZOLAM HCL/PF 2 MG/2 ML VIAL. ONE; -MORPHINE SULFATE 2 MG/ML VIAL. IV PRN; -ONDANSETRON PF 4 MG/2 ML VIAL. IV PRN; -ONDANSETRON PF 4 MG/2 ML VIAL. ONE; -OXYC-323 PO; +OXYC1TAB15 PO; -PROCHLORPERAZINE 10 MG/2 ML VIAL. IV PRN; -PROPOFOL 20 ML IV ONE; -ROCURONIUM 50 MG/5 ML VIAL. ONE; -SURGICEL HEMOSTAT 4X8 EACH. ONE; -fentaNYL PF VIAL 100 MCG/2 ML VIAL IV PRN; -fentaNYL PF VIAL 100 MCG/2 ML VIAL ONE
--- NOTE | 2018-10-27 10:47 | KCIC ---
Examination: VENOUS LOWER EXTREMITY LEFT History: Left lower extremity swelling COMPARISON/CORRELATION: None FINDINGS: Bilateral lower extremity duplex venous ultrasound exam was performed. Grayscale, color Doppler, and spectral Doppler imaging was performed. Compression and augmentation was performed. Greater saphenous vein was imaged. The left common femoral vein, superficial femoral vein, popliteal vein, and greater saphenous vein are normal with no evidence of deep venous thrombus. Visualized calf veins are unremarkable. Normal compressibility and augmentation is evident. IMPRESSION: Normal left lower extremity duplex ultrasound exam. No evidence of deep venous thrombus involving the left lower extremity. Electronically signed by: Artur Bach MD (10/27/2018 10:44 AM) [id number]
== END | disposition home or self-care (01) ==
LOC: KCIC US 09:37
PROVIDERS: ATTEND Family Medicine
DX: M79.89 Other specified soft tissue disorders (principal)
CPT/HCPCS: 93971

== ENCOUNTER → 2018-11-18 | Outpatient (CLI) | payer OTHER ==
--- NOTE | 2018-11-18 15:04 | KCIC ---
History: Baseline screening mammogram Bilateral digital CC and MLO views were obtained with mammography and tomosynthesis. Computer aided detection was utilized with iCAD Second Look 7.2-H. Previous: No priors. The breast tissue is heterogeneously dense, which could obscure detection of small masses (Level 3 density). There are no suspicious masses, suspicious microcalcifications or areas of architectural distortion. Benign bilateral calcifications. IMPRESSION: Negative mammogram. Patient information was entered into the Ribbit reminder system with a target due date for the next screening mammogram. Routine annual screening mammogram in one year advised. BI-RADS Category 1: Negative. Your mammogram demonstrates that you have dense breast tissue, which could hide abnormalities, and if you have other risk factors for breast cancer that have been identified, you might benefit from supplemental screening tests that may be suggested by your ordering physician. Dense breast tissue, in and of itself, is a relatively common condition. This information is not provided to cause undue concern, but rather to raise your awareness and to promote discussion with your physician regarding the presence of other risk factors, in addition to dense breast tissue. A report of your mammography results will be sent to you and your physician. You should contact your physician if you have any questions or concerns regarding this report. A mammogram does not have 100% sensitivity and therefore a negative imaging study should not delay further work up of a suspicious abnormality. "Our facility is accredited by the [employer] [place] Mammography Program." Electronically signed by: Hero Romero MD (11/18/2018 3:01 PM) [id number]
== END | disposition home or self-care (01) ==
LOC: KCIC MAMMO 11:15
PROVIDERS: ATTEND Family Medicine
DX: Z12.31 Encounter for screening mammogram for malignant neoplasm of breast (principal)
CPT/HCPCS: 77063; 77067